=== PATIENT | male | born 1955 | race Two or more races ===

== ENCOUNTER 2016-04-10 16:08 | Emergency (ER) | payer SELFPAY ==
[2016-04-10] MEDS ORDERED: IOPAMIDOL 300 (61%) 150 ML VIAL IV ONE (16:09)
--- NOTE | 2016-04-10 17:02 | RAD ---
CHEST 2 VIEWS HISTORY: Cough x2 weeks. Chest pain. Frontal and lateral chest radiographs dated 04/10/2015. COMPARISON: 06/22/2015. FINDINGS: FOCAL AIRSPACE OPACITY: Irregular patchy density at the right middle lobe, atelectasis and pneumonia are possible. PLEURAL EFFUSION: None. CARDIOMEDIASTINAL SILHOUETTE: Nonenlarged. PNEUMOTHORAX: None identified. OSSEOUS STRUCTURES: No grossly destructive lesions. IMPRESSION: Airspace disease of the right middle lobe, correlate for atelectasis versus pneumonia. Follow-up imaging is recommended to ensure resolution.
[2016-04-10] MEDS ORDERED: LACTATED RINGERS 1,000 ML ONE (17:19)
[2016-04-10] MEDS ORDERED: MORPHINE SULFATE 4 MG/ML SYRINGE ONE (17:19)
[2016-04-10] MEDS ORDERED: MORPHINE SULFATE 2 MG/ML SYRINGE ONE (17:19)
[2016-04-10 17:33] LABS: ABSOLUTE NEUTROPHIL COUNT 4.9 K/mm3 (1.8-7.7); BASO # 0.1 K/mm3 (0.0-0.2); BASO % 0.6 % (0.2-1.0); EOS # 0.1 (0.0-0.5); EOS % 1.2 % (0.9-2.9); HEMATOCRIT 40.1 % (32.0-52.0); HEMOGLOBIN 13.4 gm/l (14.0-18.0); IMM NEUT # 0.2 K/mm3 (0-0.2); IMM NEUT% 1.8 % (0-1); LYMPH # 2.4 (1.0-4.8); LYMPH % 29.2 % (15-45); MEAN CELL VOLUME 93.3 fl (80.0-94.0); MEAN CORPUSCULAR HEMOGLOBIN 31.2 pg (27.0-31.0); MEAN CORPUSCULAR HGB CONC 33.4 g/dl (33.0-37.0); MEAN PLATELET VOLUME 9.3 fl (7.4-10.4); MONO # 0.6 (0.0-0.8); MONO % 7.1 % (4-12); NEUT % 60.1 % (43-75); PLATELET COUNT 356 K/mm3 (130-400); RED CELL DISTRIBUTION WIDTH 12.4 % (11.5-14.5)
[2016-04-10 18:16] LABS: CALCIUM 9.4 mg/dL (8.6-10.3)
[2016-04-10 18:40] LABS: ALB/GLOB RATIO 1.2 (>1.0); ALBUMIN 4.1 gm/dL (3.5-5.7)
--- NOTE | 2016-04-10 19:26 | CT ---
EXAMINATION: Contrast enhanced CT scan of the abdomen and pelvis. CLINICAL INDICATION: Right lower quadrant abdominal pain. COMPARISON: Prior CT scan dated 06/25/2015. TECHNIQUE: Oral contrast: None Following uneventful administration of 125 mL of Isovue 300, intravenously axial images were acquired from just above the domes of the diaphragm to the iliac crest. A CT scan of the pelvis was also obtained from the iliac crest to the initial tuberosities. Stacked axial, sagittal, and coronal images were reviewed. Findings: Abdomen CT: (Contrast-enhanced): There is motion artifact. There is mild bibasilar atelectasis. There is a 4 mm nodule in the lateral basilar segment left lower lobe. There is no pleural effusion. The liver is unremarkable. The gallbladder is within normal limits. There is no evidence of biliary obstruction. The spleen size and attenuation are within normal limits. The pancreas is normal in size and contours. No inflammatory stranding is identified. The pancreatic duct is unremarkable. The adrenals are unremarkable. The kidneys are without mass or hydronephrosis. No nephrolithiasis is identified. The abdominal aorta unremarkable. There is no retroperitoneal adenopathy identified. The stomach is unremarkable. The visualized segments of small and large bowel are within normal limits. The osseous structures exhibit no displaced fracture. No lytic or blastic lesions are identified. Pelvic CT: (Contrast -enhanced): The distal ureters and bladder are unremarkable. The prostate is normal in size. No adenopathy is identified. The distal abdominal aorta and iliac vessels are within normal limits. The visualized segments of small and large bowel are within normal limits. The appendix is unremarkable. No displaced fractures are identified. There are no gross osteolytic or blastic lesions. Bilateral fat-containing inguinal hernias appear very similar to the prior study. There is no bowel containment or incarceration. IMPRESSION: 1. No evidence of acute inflammatory or obstructive process involving the abdomen and pelvis. 2. Normal appendix. 3. Minor spondylosis changes lumbar spine. 4. 4 mm nodule lateral basilar segment left lower lobe. This appears slightly larger in size in comparison to the prior examination. CT scan of the thorax within 3 months is recommended. 5. Mild bibasilar atelectasis. 6. Bilateral fat-containing inguinal hernias. The findings were uploaded to the electronic medical record for review at approximately 7:26 PM 04/10/2016
[2016-04-10] MEDS ORDERED: IBUPROFEN 600 MG TABLET ONE ×2 (19:59→20:00)
[2016-04-10] MEDS ORDERED: DOXYCYCLINE HYCLATE 100 MG TABLET ONE (19:59)
[2016-04-10] MEDS ORDERED: ACETAMINOPHEN 325 MG TABLET ONE (19:59)
== END 2016-04-10 20:15 | disposition home or self-care (01) ==
LOC: ED 16:08
DX: J18.9 Pneumonia, unspecified organism (principal)
CPT/HCPCS: 83690; 85025; 80053; 71020; 74177; 87804; 99284 ×2; 96374; J2270 ×2; A9270 ×4; J7120; Q9967